=== PATIENT | female | born 1970 | race Caucasian/White ===

== ENCOUNTER 2017-05-24 09:33 | Emergency (ER) | payer MEDICAID ==
[~2017-05-24] VITALS: Ht 167.6 cm; Wt 202.3 kg
[~2017-05-24 09:33] MED LIST: ACETAMINOPHEN-120 ML PO; ADIPEX-P37.5 M1 PO; ALBUTEROL; ALPRAZOLAM ER1 MG PO; AMBIEN 5 MG TABL5 M1; ATIVAN1 MG PO; AZITHROMYCIN 2250 MG PO; BACTRIM DS TAB1 EACH PO; CARAFATE 11 GM/10 M1 PO; COMBIVENT INH; ERY-TAB500 MG; GABAPENTIN100 MG PO; HYZAAR 50-12.51 EACH PO; IBUPROFEN 800800 M1 PO; LASIX 20 MG TAB20 MG; LASIX 40 MG TAB40 M1 PO; LEXAPRO; MELOXICAM7.5 MG PO; METFORMIN HCL500 MG PO; NAPROSYN500 MG; NORCO 10-325 T1 EAC1 PO; NORCO 10-325 T1 EACH PO; NORCO 5-325 TA1 EACH PO; OXYGEN; PARAFON FORTE500 M2 PO; PERCOCET 10-651 EACH PO; PERCOCET 5-3251 EACH PO; PERCOCET 7.5-31 EACH; PHENTERMINE H37.5 MG PO; PROAIR HFA8.5 GM IH; PROVENTIL; R-TANNA; RANITIDINE HCL300 M1 PO; TIZANIDINE HCL 22 MG PO; TIZANIDINE HCL4 MG PO; ULTRAM 50MG TAB50 MG PO; VICODIN; VOLTAREN GEL 1100 G2 TOP; XANAX 0.25 MG0.25 MG; XANAX XR1 MG; ZANTAC; ZANTAC 150MG T150 M1 PO; ZANTAC150 M2 PO; ZYRTEC10 M5 PO
[2017-05-24] MEDS ORDERED: ZPAK PO (09:57)
[2017-05-24] MEDS ORDERED: PREDNISONE 20 M20 M1 PO (09:57)
[2017-05-24] MEDS ORDERED: ACCUNEB SO1.25 MG/1 INH (09:58)
[2017-05-24] MEDS ORDERED: LIPITOR10 MG PO (09:58)
[2017-05-24] MEDS ORDERED: CELEBREX 200 M200 M1 PO (09:58)
[2017-05-24] MEDS ORDERED: NORCO 5-325 TA1 EACH PO (09:59)
[2017-05-24] MEDS ORDERED: LASIX 20 MG TAB20 MG PO (09:59)
[2017-05-24] MEDS ORDERED: IMDUR 30 MG TAB30 M1 PO (09:59)
[2017-05-24] MEDS ORDERED: PLAVIX 300 MG300 M1 PO (09:59)
[2017-05-24] MEDS ORDERED: LORATIDINE 10 M10 M1 PO (09:59)
[2017-05-24] MEDS ORDERED: PROVERA2.5 MG PO (10:00)
[2017-05-24] MEDS ORDERED: TOPROL XL100 MG PO (10:00)
[2017-05-24] MEDS ORDERED: KLOR-CON 1010 MEQ PO (10:00)
[2017-05-24 10:08] VITALS: BP 105/62
== END 2017-05-24 10:09 | disposition home or self-care (01) ==
LOC: M.ERS 09:33
DX: J40 Bronchitis, not specified as acute or chronic (principal); J06.9 Acute upper respiratory infection, unspecified; F41.9 Anxiety disorder, unspecified; Z98.890 Other specified postprocedural states; Z88.0 Allergy status to penicillin; Z88.8 Allergy status to other drugs, medicaments and biological substances

== ENCOUNTER 2019-04-02 09:18 | Emergency (ER) | payer MEDICAID ==
[~2019-04-02] VITALS: Ht 167.6 cm; Wt 205.5 kg
[~2019-04-02 09:18] MED LIST changes: +ACCUNEB SO1.25 MG/1 INH; +CELEBREX 200 M200 M1 PO; +IMDUR 30 MG TAB30 M1 PO; +KLOR-CON 1010 MEQ PO; +LASIX 20 MG TAB20 MG PO; +LIPITOR10 MG PO; +LORATIDINE 10 M10 M1 PO; +PLAVIX 300 MG300 M1 PO; +PREDNISONE 20 M20 M1 PO; +PROVERA2.5 MG PO; +TOPROL XL100 MG PO; +ZPAK PO
[2019-04-02 11:30] VITALS: BP 131/83
== END 2019-04-02 11:46 | disposition home or self-care (01) ==
LOC: M.ERS 09:18
DX: S86.811A Strain of other muscle(s) and tendon(s) at lower leg level, right leg, initial encounter (principal); M25.521 Pain in right elbow; J45.909 Unspecified asthma, uncomplicated; G89.29 Other chronic pain; F41.9 Anxiety disorder, unspecified; Z90.49 Acquired absence of other specified parts of digestive tract; Z86.718 Personal history of other venous thrombosis and embolism; Z88.0 Allergy status to penicillin; Z88.8 Allergy status to other drugs, medicaments and biological substances; W01.0XXA Fall on same level from slipping, tripping and stumbling without subsequent striking against object, initial encounter; Y93.89 Activity, other specified; Y92.89 Other specified places as the place of occurrence of the external cause; Y99.8 Other external cause status